=== PATIENT | female | born 2000 | race American Indian/Alaskan Native ===

== ENCOUNTER 2020-01-03 10:43 | Emergency (ER) | payer SELFPAY ==
[2020-01-03 10:54] VITALS: BP 113/61
--- NOTE | 2020-01-03 12:50 | Emergency Department Report ---
ED ENT HPI - General Chief complaint: Sore Throat Stated complaint: FEVER/SORE THROAT/CONGESTED Time Seen by Provider: 01/03/20 12:29 Source: patient Mode of arrival: Ambulatory Limitations: No Limitations - History of Present Illness Initial comments: 19-year-old -[place] female presents to the emergency room complaining of a sore throat fever and congestion. Patient states that her temperature was 85 degrees. Patient denies working any cold environment. She works at [employer] with the public. Denies any chills. Patient reports that she was having nasal congestion and states a sore throat with cough that was minor and dry. Patient states that she took some [id number]-[id number] anti-cold medication and her nasal congestion had gotten better. - Related Data Previous Rx's Medication Instructions Recorded Last Taken Type Cyclobenzaprine [Flexeril] 10 mg PO QHS PRN #10 tablet 12/25/19 Unknown Rx Naproxen 500 mg PO Q12H PRN #12 tablet 12/25/19 Unknown Rx Cetirizine HCl [ZyrTEC 10mg cap] 10 mg PO QDAY #30 capsule 01/03/20 Unknown Rx Fluticasone [Flonase] 1 spray NS QDAY #1 bottle 01/03/20 Unknown Rx Allergies Allergy/AdvReac Type Severity Reaction Status Date / Time No Known Allergies Allergy Unverified 12/25/19 17:55 ED Dental HPI - General Chief complaint: Sore Throat Stated complaint: FEVER/SORE THROAT/CONGESTED Time Seen by Provider: 01/03/20 12:29 Source: patient Mode of arrival: Ambulatory Limitations: No Limitations - Related Data Previous Rx's Medication Instructions Recorded Last Taken Type Cyclobenzaprine [Flexeril] 10 mg PO QHS PRN #10 tablet 12/25/19 Unknown Rx Naproxen 500 mg PO Q12H PRN #12 tablet 12/25/19 Unknown Rx Cetirizine HCl [ZyrTEC 10mg cap] 10 mg PO QDAY #30 capsule 01/03/20 Unknown Rx Fluticasone [Flonase] 1 spray NS QDAY #1 bottle 01/03/20 Unknown Rx Allergies Allergy/AdvReac Type Severity Reaction Status Date / Time No Known Allergies Allergy Unverified 12/25/19 17:55 ED Review of Systems ROS: Stated complaint: FEVER/SORE THROAT/CONGESTED Other details as noted in HPI Comment: All other systems reviewed and negative ED Past Medical Hx - Past Medical History Previous Medical History?: No - Surgical History Past Surgical History?: No - Social History Smoking Status: Never Smoker Substance Use Type: None - Medications Home Medications: Home Medications Medication Instructions Recorded Confirmed Last Taken Type Cyclobenzaprine [Flexeril] 10 mg PO QHS PRN #10 tablet 12/25/19 Unknown Rx Naproxen 500 mg PO Q12H PRN #12 tablet 12/25/19 Unknown Rx Cetirizine HCl [ZyrTEC 10mg cap] 10 mg PO QDAY #30 capsule 01/03/20 Unknown Rx Fluticasone [Flonase] 1 spray NS QDAY #1 bottle 01/03/20 Unknown Rx ED Physical Exam - General Limitations: No Limitations General appearance: alert, in no apparent distress - Head Head exam: Present: atraumatic, normocephalic - Eye Eye exam: Present: normal appearance - ENT ENT exam: Present: normal exam, normal orophraynx, mucous membranes moist. Absent: mucous membranes dry - Neck Neck exam: Present: normal inspection, full ROM. Absent: tenderness, lymphadenopathy - Respiratory Respiratory exam: Present: normal lung sounds bilaterally, other (No active coughing). Absent: respiratory distress - Cardiovascular Cardiovascular Exam: Present: regular rate, normal rhythm. Absent: systolic murmur, diastolic murmur, rubs, gallop - GI/Abdominal GI/Abdominal exam: Present: soft, normal bowel sounds - Neurological Exam Neurological exam: Present: alert, oriented X3, normal gait - Psychiatric Psychiatric exam: Present: normal affect, normal mood - Skin Skin exam: Present: warm, dry, intact, normal color. Absent: rash ED Course Vital Signs 01/03/20 10:52 Temperature 98.1 F Pulse Rate 74 Respiratory 18 Rate Blood Pressure 113/61 O2 Sat by Pulse 100 Oximetry ED Medical Decision Making - Medical Decision Making 19-year-old -[place] female presents to the emergency room complaining of a sore throat fever and congestion. Patient states that her temperature was 85 degrees. Patient denies working any cold environment. She works at [employer] with the public. Denies any chills. Patient reports that she was having nasal congestion and states a sore throat with cough that was minor and dry. Patient states that she took some ldvi-wyc-[id number] anti-cold medication and her nasal congestion had gotten better. Discussed with patient she can try taking brlz-cdw-abhthob Flonase or Nasacort she can take [id number] Zyrtec's or Claritin Tylenol or ibuprofen as needed for pain. She can follow-up with her primary care provider she can get tested for COVID. Critical care attestation.: If time is entered above; I have spent that time in minutes in the direct care of this critically ill patient, excluding procedure time. ED Disposition Clinical Impression: Allergic rhinitis, Sore throat (viral) Disposition: TO HOME OR SELFCARE Is pt being admited?: No Does the pt Need Aspirin: No Condition: Stable Instructions: Allergic Rhinitis (ED) Additional Instructions: Please take [id number] medications as recommended increase your fluid intake. Follow-up with a primary care provider. Prescriptions: Fluticasone [Flonase] 1 spray NS QDAY #1 bottle Cetirizine HCl [ZyrTEC 10mg cap] 10 mg PO QDAY #30 capsule Referrals: [facility] [Provider Group] - 3-5 Days Forms: Work/School Release Form(ED)
== END 2020-01-03 12:50 | disposition home or self-care (01) ==
LOC: ED 10:43
DX: J30.9 Allergic rhinitis, unspecified (principal); J02.8 Acute pharyngitis due to other specified organisms; B97.89 Other viral agents as the cause of diseases classified elsewhere; Z79.899 Other long term (current) drug therapy
CPT/HCPCS: 99282